=== PATIENT | male | born 1960 | race Native Hawaiian/Other Pacific Islander ===

== ENCOUNTER 2017-10-31 14:17 | Outpatient (CLI) | payer BC | END 2017-10-31 15:20 | disposition home or self-care (01) | LOC: RAD 14:17 | DX: R05 Cough (principal) ==

== ENCOUNTER 2018-05-19 08:06 | Outpatient (CLI) | payer BC | END 2018-05-19 23:27 | disposition home or self-care (01) | LOC: CT 08:06 | DX: J18.9 Pneumonia, unspecified organism (principal); R05 Cough ==

== ENCOUNTER 2019-09-04 15:22 | Outpatient (CLI) | payer OTHER | END 2019-09-04 16:00 | disposition home or self-care (01) | LOC: RAD 15:22 | DX: R60.0 Localized edema (principal); M79.605 Pain in left leg ==

== ENCOUNTER 2020-06-22 11:01 | Outpatient (CLI) | payer OTHER ==
[2020-06-22 11:27] LABS: PLATELET COUNT 133 K/uL (142-355)
== END 2020-06-22 23:24 | disposition home or self-care (01) ==
LOC: LABW 11:01
PROVIDERS: Internal Medicine Gastroenterology
DX: B18.2 Chronic viral hepatitis C (principal)
CPT/HCPCS: 36415; 80076; 85027